=== PATIENT | male | born 1960 ===

== ENCOUNTER 2017-07-01 21:44 | Inpatient (IN) | payer OTHER ==
[2017-07-01] MEDS ORDERED: Sodium Chloride 0.9% 1,000 ML IV STA (22:17)
--- NOTE | 2017-07-01 22:45 | ED PDOC ---
HPI: Psych/Substance Abuse Time Seen by Provider: 07/01/17 21:54 Chief Complaint (Nursing): Alcohol Ingestion Chief Complaint (Provider): Alcohol Ingestion ED Caveat: Altered Mental Status History Per: EMS History/Exam Limitations: intoxication Onset/Duration Of Symptoms: Hrs Current Symptoms Are (Timing): Still Present Additional Complaint(s): Ramon Neves is a 57 year old male with unknown past medical history who was brought to the ER by EMS for evaluation of altered mental status and possible intoxication. EMS states that patient was found trying to get into his apartment when his neighbor called 911. His neighbor reports that patient is not normally like this. Patient reported that he has been drinking. History from patient may be unreliable due to intoxication. PMD: none provided NIHSS Stroke Scale - Date/Time Evaluation Performed Date Performed: 07/01/17 Time Performed: 21:55 When Was NIHSS Performed: Baseline - How Severe is the Stroke Level of Consciousness: 1=Drowsy LOC to Questions: 1=One correct LOC to commands: 0=Obeys both correctly Best Gaze: 0=Normal Visual: 0=No visual loss Facial: 0=Normal Motor Arm - Left: 0=No drift Motor Arm - Right: 0=No drift Motor Leg - Left: 0=No drift Motor Leg - Right: 0=No drift Limb Ataxia: 0=Absent Sensory: 0=Normal Best Language: 1=Mild to moderate aphasia Dysarthia: 1=Mild to moderate slurring Extinction & Inattention (Neglect): 0=Normal, no object Score: 4 Past Medical History Reviewed: Historical Data, Nursing Documentation, Vital Signs, Unable To Obtain Vital Signs: Last Vital Signs Temp 97.8 F 07/01/17 21:46 Pulse 96 H 07/01/17 21:46 Resp 16 07/01/17 21:46 BP 139/85 07/01/17 21:46 Pulse Ox 100 07/01/17 21:46 - Family History Family History: States: Unknown Family Hx - Home Medications Home Medications: Ambulatory Orders Medication Instructions Recorded Unobtainable 07/02/17 - Allergies Allergies/Adverse Reactions: Allergies Allergy/AdvReac Type Severity Reaction Status Date / Time No Known Allergies Allergy Verified 07/01/17 21:50 Review of Systems Review Of Systems: ROS cannot be obtained secondary to pt's inabilty to answer questions. Physical Exam - Reviewed Nursing Documentation Reviewed: Yes Vital Signs Reviewed: Yes - Physical Exam Appears: Positive for: No Acute Distress (well appearing) Head Exam: Positive for: ATRAUMATIC, NORMOCEPHALIC Skin: Positive for: Warm, Dry Eye Exam: Positive for: EOMI, PERRL ENT: Negative for: Pharyngeal Erythema, Tonsillar Exudate Neck: Positive for: Painless ROM, Supple Cardiovascular/Chest: Positive for: Regular Rate, Rhythm. Negative for: Murmur Respiratory: Positive for: Normal Breath Sounds. Negative for: Respiratory Distress Gastrointestinal/Abdominal: Positive for: Soft. Negative for: Tenderness Back: Positive for: Normal Inspection. Negative for: Decreased ROM Extremity: Positive for: Normal ROM. Negative for: Deformity Lymphatic: Negative for: Adenopathy Neurologic/Psych: Positive for: Alert, Oriented (x1), Aphasia (mild expressive) , Other (slighly slurred speech). Negative for: Motor/Sensory Deficits - Laboratory Results Result Diagrams: 07/01/17 23:03 07/02/17 04:14 - ECG ECG Rhythm: Positive for: Normal QRS, Normal ST Segment, Sinus Rhythm Rate: 84 O2 Sat by Pulse Oximetry: 100 (RA) Pulse Ox Interpretation: Normal Medical Decision Making Medical Decision Making: Time: 22:08 Impression: Altererd Mental Status Differentials: Alcohol/Drug Intoxication, head injury, electrolyte abnormality; if toxicology negative: possible CVA Plan: --CT Head --EKG --Alcohol Serum --CMP --Drug Screen --Magnesium --Phosphorous --ED Urine Dipstick --CBC --COAG --GLucose, POC --IV Fluids Time: 00:00 --Patient endorsed to Dr. Damico, pending CT scan and clinical sobriety. Scribe Attestation: Documented by, Portia Avila acting as a scribe for Ange Valle MD. Provider Scribe Attestation: All medical record entries made by the Scribe were at my direction and personally dictated by me. I have reviewed the chart and agree that the record accurately reflects my personal performance of the history, physical exam, medical decision making, and the department course for this patient. I have also personally directed, reviewed, and agree with the discharge instructions and disposition. Disposition - Clinical Impression Clinical Impression: Altered mental state - Patient ED Disposition Is Patient to be Admitted: Transfer of Care - Disposition Disposition: Transfer of Care Disposition Time: 00:00 Condition: FAIR Patient Signed Over To: Will Damico Handoff Comments: Pending CT scan and sobriety
[2017-07-01 23:06] LABS: BASO # 0.1 K/uL (0.0-0.2); BASO % 1.2 % (0.0-2.0); EOS # 0.2 K/uL (0.0-0.7); EOS % 2.9 % (0.0-4.0); HEMOGLOBIN 13.4 g/dL (12.0-18.0); LYMPH # 2.3 K/uL (1.0-4.3); LYMPH % 31.7 % (20.0-40.0); MEAN CORPUSCULAR HEMOGLOBIN 27.5 pg (27.0-31.0); MEAN CORPUSCULAR HGB CONC 33.2 g/dL (33.0-37.0); MEAN PLATELET VOLUME 9.4 fl (7.2-11.7); MONO # 0.7 K/uL (0.0-0.8); NEUT # 4.1 K/uL (1.8-7.0); NEUT % 55.2 % (50.0-75.0); RBC 4.85 Mil/uL (4.40-5.90); RED CELL DISTRIBUTION WIDTH 12.4 % (11.5-14.5); WHITE BLOOD COUNT 7.4 K/uL (4.8-10.8)
[2017-07-01 23:16] LABS: ALBUMIN 3.1 g/dL (3.5-5.0); ALT/SGPT 36 U/L (21-72); AST/SGOT 26 U/L (17-59); BLOOD UREA NITROGEN 13 mg/dl (9-20); CALCIUM 8.9 mg/dL (8.4-10.2); GFR AFRICAN-AMERICAN > 60; GFR NON-AFRICAN AMERICAN > 60
[2017-07-01 23:25] LABS: PARTIAL THROMBOPLASTIN TIME 31.6 Seconds (25.6-37.1)
--- NOTE | 2017-07-02 00:09 | CT ---
EXAM: CT Head Without Intravenous Contrast CLINICAL HISTORY: 57 years old, male; Signs and symptoms; Altered mental status/memory loss; Additional info: Confusion TECHNIQUE: Axial computed tomography images of the head/brain without intravenous contrast. All CT scans at this facility use one or more dose reduction techniques, viz.: automated exposure control; ma/kV adjustment per patient size (including targeted exams where dose is matched to indication; i.e. head); or iterative reconstruction technique. Coronal and sagittal reformatted images were created and reviewed. COMPARISON: No relevant prior studies available. FINDINGS: Brain: Mild atrophy. No intracranial hemorrhage. No mass. Few scattered foci of decreased attenuation within periventricular/subcortical white matter. Probable chronic infarct about left thalamus/internal capsule. No definite edema. Ventricles: No hydrocephalus. Bones/joints: No acute fracture. Soft tissues: Unremarkable. Sinuses: Scattered minimal mucosal thickening of ethmoid sinuses. Mastoid air cells: No mastoid effusion. Orbits: Unremarkable as visualized. IMPRESSION: 1. Nonspecific white matter changes. Acute infarction may be CT occult within first 24 hours. If a focal deficit persists, consider followup CT or MRI for further evaluation. 2. Incidental/non-acute findings are described above.
--- NOTE | 2017-07-02 00:27 | ED PDOC ---
- Laboratory Results Result Diagrams: 07/01/17 23:03 07/02/17 04:14 - ECG O2 Sat by Pulse Oximetry: 100 (RA) Medical Decision Making Medical Decision Making: Time: 00:00 --Patient is endorsed to provider from Dr. Valle, pending CT scan and clinical sobriety. Time: 00:09 --CT Head FINDINGS: Brain: Mild atrophy. No intracranial hemorrhage. No mass. Few scattered foci of decreased attenuation within periventricular/subcortical white matter. Probable chronic infarct about left thalamus/internal capsule. No definite edema. Ventricles: No hydrocephalus. Bones/joints: No acute fracture. Soft tissues: Unremarkable. Sinuses: Scattered minimal mucosal thickening of ethmoid sinuses. Mastoid air cells: No mastoid effusion. Orbits: Unremarkable as visualized. IMPRESSION: 1. Nonspecific white matter changes. Acute infarction may be CT occult within first 24 hours. If a focal deficit persists, consider followup CT or MRI for further evaluation. 2. Incidental/non-acute findings are described above. Time: 0336 --Labs: no clinically significant abnormality. --Upon re-evaluation, patient continues to be in persistent state of confusion. It is uncertain if this is an acute change in mentation as no other constitution party was reachable to provide collateral information. Patient is only oriented to person. --Ammonia and lact acid additionally ordered. Time: 0350 --Patient will require hospital admission. --Case discussed with Dr. Acuña, hospitalist. Clinical Impression: Altered Mental Status Scribe Attestation: Documented by Danielle Raygoza, acting as a scribe for Will Damico MD. Provider Scribe Attestation: All medical record entries made by the Scribe were at my direction and personally dictated by me. I have reviewed the chart and agree that the record accurately reflects my personal performance of the history, physical exam, medical decision making, and the department course for this patient. I have also personally directed, reviewed, and agree with the discharge instructions and disposition. Disposition - Clinical Impression Clinical Impression: Altered mental state - POA Present On Arrival: None - Disposition Disposition: Admitted as In-Patient Disposition Time: 03:30 Condition: FAIR
[2017-07-02 01:07] LABS: BARBITURATES, UR NEGATIVE (NEGATIVE); BENZODIAZEPINES, UR NEGATIVE (NEGATIVE); OPIATES, UR NEGATIVE (NEGATIVE); PHENCYCLIDINE, UR NEGATIVE (NEGATIVE)
[2017-07-02] MEDS ORDERED: Multivitamin (MVI) 10 ML, Thiamine 100 MG, Folic Acid 1 MG, Magnesium Sulfate 1 GM in S... IV ONE ×2 (03:58→04:07)
--- NOTE | 2017-07-02 04:03 | CP.PCM.HP ---
History of Present Illness - History of Present Illness History of Present Illness: CC: AMS HPI: This is a 57 y/o male with unknown MHx except for DM2 and EtOH who was brought by EMS for AMS and intoxication. A neighbor had noticed him trying to get into his apartment, but acting abnormal, so neighbor called 911; per neighbor, this is not the patient's baseline. Patient provides almost no history , aside from the fact that he drinks EtOH. States that he feels fine, that nothing is wrong with him. ROS: unable to provide MHx: DM2, EtOH abuse SHx: Unknown Allergies: NKDA Medications: Unknown Family Hx: Cannot provide Social Hx: Lives alone apparently, consumes unknown amount of EtOH, o/w unable to provide any info Present on Admission - Present on Admission Any Indicators Present on Admission: No Past Patient History - Past Social History Smoking Status: Never Smoked - PSYCHIATRIC Hx Substance Use: No Meds Allergies/Adverse Reactions: Allergies Allergy/AdvReac Type Severity Reaction Status Date / Time No Known Allergies Allergy Verified 07/01/17 21:50 Physical Exam - Constitutional Appears: No Acute Distress, Confused - Head Exam Head Exam: ATRAUMATIC, NORMOCEPHALIC - Eye Exam Eye Exam: EOMI, PERRL - ENT Exam ENT Exam: Mucous Membranes Moist - Neck Exam Neck exam: Positive for: Full Rom - Respiratory Exam Respiratory Exam: Clear to Auscultation Bilateral, NORMAL BREATHING PATTERN - Cardiovascular Exam Cardiovascular Exam: REGULAR RHYTHM, +S1, +S2 - GI/Abdominal Exam GI & Abdominal Exam: Normal Bowel Sounds, Soft - Extremities Exam Extremities exam: Positive for: full ROM, normal inspection - Neurological Exam Neurological exam: CN II-XII Intact Additional comments: awake, but oriented maximum x1 - Psychiatric Exam Psychiatric exam: Normal Affect, Normal Mood - Skin Skin Exam: Dry, Warm Results - Vital Signs Recent Vital Signs: Last Vital Signs Temp 97.8 F 07/01/17 21:46 Pulse 84 07/02/17 00:26 Resp 16 07/01/17 21:46 BP 139/85 07/01/17 21:46 Pulse Ox 100 07/02/17 03:59 - Labs Result Diagrams: 07/01/17 23:03 07/01/17 23:03 Labs: Laboratory Results - last 24 hr 07/01/17 07/01/17 07/01/17 22:13 23:03 23:03 WBC 7.4 RBC 4.85 Hgb 13.4 Hct 40.3 MCV 83.0 MCH 27.5 MCHC 33.2 RDW 12.4 Plt Count 164 MPV 9.4 Neut % (Auto) 55.2 Lymph % (Auto) 31.7 [place] % (Auto) 9.0 Eos % (Auto) 2.9 Baso % (Auto) 1.2 Neut # (Auto) 4.1 Lymph # (Auto) 2.3 [place] # (Auto) 0.7 Eos # (Auto) 0.2 Baso # (Auto) 0.1 PT INR APTT Sodium 132 Potassium 3.5 L Chloride 93 L Carbon Dioxide 23 Anion Gap 20 BUN 13 Creatinine 0.7 L Est GFR ( Amer) > 60 Est GFR (Non-Af Amer) > 60 POC Glucose (mg/dL) 286 H Random Glucose 288 H Calcium 8.9 Phosphorus 3.8 Magnesium 1.9 Total Bilirubin 0.3 AST 26 ALT 36 Alkaline Phosphatase 74 Total Protein 6.2 L Albumin 3.1 L Globulin 3.1 Albumin/Globulin Ratio 1.0 Urine Opiates Screen Urine Methadone Screen Ur Barbiturates Screen Ur Phencyclidine Scrn Ur Amphetamines Screen U Benzodiazepines Scrn U Oth Cocaine Metabols U Cannabinoids Screen Alcohol, Quantitative 124 H 18 07/02/17 23:03 00:42 WBC RBC Hgb Hct MCV MCH MCHC RDW Plt Count MPV Neut % (Auto) Lymph % (Auto) [place] % (Auto) Eos % (Auto) Baso % (Auto) Neut # (Auto) Lymph # (Auto) [place] # (Auto) Eos # (Auto) Baso # (Auto) PT 11.0 INR 1.0 APTT 31.6 Sodium Potassium Chloride Carbon Dioxide Anion Gap BUN Creatinine Est GFR ( Amer) Est GFR (Non-Af Amer) POC Glucose (mg/dL) Random Glucose Calcium Phosphorus Magnesium Total Bilirubin AST ALT Alkaline Phosphatase Total Protein Albumin Globulin Albumin/Globulin Ratio Urine Opiates Screen Negative Urine Methadone Screen Negative Ur Barbiturates Screen Negative Ur Phencyclidine Scrn Negative Ur Amphetamines Screen Negative U Benzodiazepines Scrn Negative U Oth Cocaine Metabols Negative U Cannabinoids Screen Negative Alcohol, Quantitative - EKG Data EKG Interpreted by: Myself EKG shows normal: Sinus rhythm Rate: Normal - Imaging and Cardiology CT scan - head Status: Image reviewed by me, Report reviewed by me (unremarkable, no acute findings; some atrophy noted) Assessment & Plan (1) Altered mental state Assessment and Plan: 57 y/o male with unknown history other than DM2 and EtOH who was found with AMS. 1) AMS/EtOH intoxication -- unclear etiology, may be due to some underlying dementia possible due to EtOH? -Banana bag -Replete K/Mg -TSH, B12, Folate, and RPR for AM -Ammonia pending -Consider psych/neuro consults if mental status does not improve by AM 2) DM2 -DM diet -accucheck ACHS with SSI 3) DVT PPx -- SQ lovenox Status: Acute (2) ETOH abuse Status: Acute (3) DM2 (diabetes mellitus, type 2) Status: Acute (4) DVT prophylaxis Status: Acute
[2017-07-02] MEDS ORDERED: KCL 40MEQ/NS 1L 1,000 ML IV SCH (04:15)
[2017-07-02 04:33] LABS: BLOOD UREA NITROGEN 12 mg/dl (9-20); CALCIUM 8.7 mg/dL (8.4-10.2); GFR AFRICAN-AMERICAN > 60; GFR NON-AFRICAN AMERICAN > 60
[2017-07-02 05:20] LABS: SQUAMOUS EPITHIAL < 1 /hpf (0-5); URINE BILIRUBIN NEGATIVE (NEGATIVE); URINE BLOOD SMALL (NEGATIVE); URINE CLARITY CLEAR (Clear); URINE COLOR YELLOW (YELLOW); URINE GLUCOSE (UA) >=500 mg/dL (Normal); URINE LEUKOCYTE ESTERASE NEG Leu/uL (Negative); URINE PROTEIN 100 mg/dL (NEGATIVE); URINE UROBILINOGEN 0.2-1.0 mg/dL (0.2-1.0)
[2017-07-02] MEDS ORDERED: Labetalol 5 mg/ml Inj 20ML IVP STA (05:34)
--- NOTE | 2017-07-02 10:10 | CARD ---
APPROVED REPORT EKG Measurement Heart [id number] <Conclusion> Normal sinus rhythm Normal ECG
[2017-07-02] MEDS: Insulin Lispro (humaLOG) 100 Units/ml Inj SC SCH ×3 (12:55→22:17)
--- NOTE | 2017-07-02 15:22 | CP.PCM.CON ---
History of Present Illness - History of Present Illness History of Present Illness: 57 yr old male , who was found by neighbors to be confused and wandering, albeit under the influence of alcohol. His baseline is not known, but he does have a history of drinking up to 7 beers daily. He is not able to give me a good history so I obtained history from the chart. PMH/PSH: DM, ETOH FH/SH: drinks beer daily, no marijuana All: nkda. on exam: AAOx1. Does not know where he is, or the date. CN 2-12 normal. EOMI. Can name only simple objects, can repeat and follows commands well. Has great difficulty with right left differentiation. Motor: strength normal. Sensory: intact ft, pin, position sense. Dtr: +2 ul and ll bl. Toes downgoing. No clonus. Gait normal. CT head: shows frontal atrophy and old left thalamic stroke, subacute. Past Patient History - Past Social History Smoking Status: Never Smoked - PSYCHIATRIC Hx Substance Use: No Meds Allergies/Adverse Reactions: Allergies Allergy/AdvReac Type Severity Reaction Status Date / Time No Known Allergies Allergy Verified 07/01/17 21:50 - Medications Medications: Current Medications Enoxaparin Sodium (Lovenox) 40 mg SC DAILY [facility] PRN Reason: Protocol Oral Electrolytes (Kcl 40meq/ 0.9% 1l) 1,000 mls @ 50 mls/hr IV .Q20H [facility] Stop: 07/03/17 00:14 Last Admin: 07/02/17 05:50 Dose: 50 mls/hr Multivitamins/Vitamin C 10 ml/Thiamine HCl 100 mg/ Folic Acid 1 mg/ Magnesium Sulfate 1 gm/ Sodium Chloride 1,013.2 mls @ 75 mls/hr IV .[id number] ONE Stop: 07/02/17 17:28 Last Admin: 07/02/17 05:06 Dose: 75 mls/hr Insulin Human Lispro (Humalog) 0 units SC ACHS [facility] PRN Reason: Protocol Last Admin: 07/02/17 12:55 Dose: 2 units Results - Vital Signs Recent Vital Signs: Last Vital Signs Temp 98.2 F 07/02/17 11:43 Pulse 85 07/02/17 11:43 Resp 18 07/02/17 11:43 BP 144/82 07/02/17 11:43 Pulse Ox 98 07/02/17 11:43 - Labs Result Diagrams: 07/01/17 23:03 07/02/17 04:14 Labs: Laboratory Results - last 24 hr 07/01/17 07/01/17 07/01/17 22:13 23:03 23:03 WBC 7.4 RBC 4.85 Hgb 13.4 Hct 40.3 MCV 83.0 MCH 27.5 MCHC 33.2 RDW 12.4 Plt Count 164 MPV 9.4 Neut % (Auto) 55.2 Lymph % (Auto) 31.7 [place] % (Auto) 9.0 Eos % (Auto) 2.9 Baso % (Auto) 1.2 Neut # (Auto) 4.1 Lymph # (Auto) 2.3 [place] # (Auto) 0.7 Eos # (Auto) 0.2 Baso # (Auto) 0.1 PT INR APTT Sodium 132 Potassium 3.5 L Chloride 93 L Carbon Dioxide 23 Anion Gap 20 BUN 13 Creatinine 0.7 L Est GFR ( Amer) > 60 Est GFR (Non-Af Amer) > 60 POC Glucose (mg/dL) 286 H Random Glucose 288 H Lactic Acid Calcium 8.9 Phosphorus 3.8 Magnesium 1.9 Total Bilirubin 0.3 AST 26 ALT 36 Alkaline Phosphatase 74 Ammonia Total Protein 6.2 L Albumin 3.1 L Globulin 3.1 Albumin/Globulin Ratio 1.0 Vitamin B12 TSH 3rd Generation Urine Color Urine Clarity Urine pH Ur Specific [place] Urine Protein Urine Glucose (UA) Urine Ketones Urine Blood Urine Nitrate Urine Bilirubin Urine Urobilinogen Ur Leukocyte Esterase Urine RBC (Auto) Urine Microscopic WBC Ur Squamous Epith Cells Urine Opiates Screen Urine Methadone Screen Ur Barbiturates Screen Ur Phencyclidine Scrn Ur Amphetamines Screen U Benzodiazepines Scrn U Oth Cocaine Metabols U Cannabinoids Screen Alcohol, Quantitative 124 H 07/01/17 07/02/17 07/02/17 23:03 00:42 04:08 WBC RBC Hgb Hct MCV MCH MCHC RDW Plt Count MPV Neut % (Auto) Lymph % (Auto) [place] % (Auto) Eos % (Auto) Baso % (Auto) Neut # (Auto) Lymph # (Auto) [place] # (Auto) Eos # (Auto) Baso # (Auto) PT 11.0 INR 1.0 APTT 31.6 Sodium Potassium Chloride Carbon Dioxide Anion Gap BUN Creatinine Est GFR ( Amer) Est GFR (Non-Af Amer) POC Glucose (mg/dL) Random Glucose Lactic Acid Calcium Phosphorus Magnesium Total Bilirubin AST ALT Alkaline Phosphatase Ammonia < 9 L Total Protein Albumin Globulin Albumin/Globulin Ratio Vitamin B12 TSH 3rd Generation Urine Color Urine Clarity Urine pH Ur Specific [place] Urine Protein Urine Glucose (UA) Urine Ketones Urine Blood Urine Nitrate Urine Bilirubin Urine Urobilinogen Ur Leukocyte Esterase Urine RBC (Auto) Urine Microscopic WBC Ur Squamous Epith Cells Urine Opiates Screen Negative Urine Methadone Screen Negative Ur Barbiturates Screen Negative Ur Phencyclidine Scrn Negative Ur Amphetamines Screen Negative U Benzodiazepines Scrn Negative U Oth Cocaine Metabols Negative U Cannabinoids Screen Negative Alcohol, Quantitative 07/02/17 07/02/17 07/02/17 04:08 04:14 05:13 WBC RBC Hgb Hct MCV MCH MCHC RDW Plt Count MPV Neut % (Auto) Lymph % (Auto) [place] % (Auto) Eos % (Auto) Baso % (Auto) Neut # (Auto) Lymph # (Auto) [place] # (Auto) Eos # (Auto) Baso # (Auto) PT INR APTT Sodium 138 Potassium 4.2 Chloride 99 Carbon Dioxide 25 Anion Gap 18 BUN 12 Creatinine 0.6 L Est GFR ( Amer) > 60 Est GFR (Non-Af Amer) > 60 POC Glucose (mg/dL) Random Glucose 232 H Lactic Acid 1.7 Calcium 8.7 Phosphorus Magnesium Total Bilirubin AST ALT Alkaline Phosphatase Ammonia Total Protein Albumin Globulin Albumin/Globulin Ratio Vitamin B12 521 TSH 3rd Generation 0.98 Urine Color Yellow Urine Clarity Clear Urine pH 6.0 Ur Specific [place] 1.010 Urine Protein 100 Urine Glucose (UA) >=500 Urine Ketones Negative Urine Blood Small Urine Nitrate Negative Urine Bilirubin Negative Urine Urobilinogen 0.2-1.0 Ur Leukocyte Esterase Neg Urine RBC (Auto) 2 Urine Microscopic WBC 1 Ur Squamous Epith Cells < 1 Urine Opiates Screen Urine Methadone Screen Ur Barbiturates Screen Ur Phencyclidine Scrn Ur Amphetamines Screen U Benzodiazepines Scrn U Oth Cocaine Metabols U Cannabinoids Screen Alcohol, Quantitative 07/02/17 07/02/17 05:21 12:19 WBC RBC Hgb Hct MCV MCH MCHC RDW Plt Count MPV Neut % (Auto) Lymph % (Auto) [place] % (Auto) Eos % (Auto) Baso % (Auto) Neut # (Auto) Lymph # (Auto) [place] # (Auto) Eos # (Auto) Baso # (Auto) PT INR APTT Sodium Potassium Chloride Carbon Dioxide Anion Gap BUN Creatinine Est GFR ( Amer) Est GFR (Non-Af Amer) POC Glucose (mg/dL) 247 H 171 H Random Glucose Lactic Acid Calcium Phosphorus Magnesium Total Bilirubin AST ALT Alkaline Phosphatase Ammonia Total Protein Albumin Globulin Albumin/Globulin Ratio Vitamin B12 TSH 3rd Generation Urine Color Urine Clarity Urine pH Ur Specific [place] Urine Protein Urine Glucose (UA) Urine Ketones Urine Blood Urine Nitrate Urine Bilirubin Urine Urobilinogen Ur Leukocyte Esterase Urine RBC (Auto) Urine Microscopic WBC Ur Squamous Epith Cells Urine Opiates Screen Urine Methadone Screen Ur Barbiturates Screen Ur Phencyclidine Scrn Ur Amphetamines Screen U Benzodiazepines Scrn U Oth Cocaine Metabols U Cannabinoids Screen Alcohol, Quantitative Assessment & Plan - Assessment and Plan (Free Text) Assessment: 57 yr old male with 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 He has no history of stroke in the past, and cannot give me a history of weakness, aphasia or dysarthria. I think an MRI brain without contrast would be advisable. If it is positive for acute stroke, we will pursue stroke workup. PLan: 1. B12, TSH 2. MRI Brain without woody. Thank you Dr. morgan
[2017-07-02] MEDS: Enoxaparin 40 mg Syringe SC SCH (17:09)
[2017-07-02 21:58] LABS: FOLATE 10.3 ng/mL
[2017-07-03 06:56] LABS: HDL CHOLESTEROL 27 MG/DL (30-70)
[2017-07-03 07:06] LABS: LDL CHOLESTEROL 76 mg/dL (0-129)
[2017-07-03] MEDS: Insulin Lispro (humaLOG) 100 Units/ml Inj SC SCH ×4 (08:15→21:45)
--- NOTE | 2017-07-03 10:32 | US ---
PROCEDURE: Duplex ultrasound of the carotid and vertebral arteries. HISTORY: CVA COMPARISON: None available. TECHNIQUE: Grayscale and duplex Doppler evaluation of the cervical carotid and vertebral arteries were performed. The common carotid, carotid bifurcations and cervical ICA and proximal ECA were evaluated. The vertebral arteries were evaluated for gross patency and direction. FINDINGS: RIGHT CAROTID ARTERIES: Common Carotid Artery: Normal. Maximal flow velocity of 97.7 cm/s. Carotid Bifurcation: Normal. Internal Carotid Artery:Normal. Maximal flow velocity of 74.1 cm/s. External Carotid Artery (proximal branches): Normal. Maximal flow velocity of 106.4 cm/s. ICA/CCA Ratio: 1.1 LEFT CAROTID ARTERIES: Common Carotid Artery: Normal. Maximal flow velocity of 112.9 cm/s. Carotid Bifurcation: Trace calcific plaque. Internal Carotid Artery:Normal. Maximal flow velocity of 72.4 cm/s. External Carotid Artery (proximal branches): Normal. Maximal flow velocity of 98.4 cm/s. ICA/CCA Ratio: 0.7 VERTEBRAL ARTERIES: Right Vertebral Artery: Patent. Antegrade flow. Left Vertebral Artery: Patent. Antegrade flow. OTHER FINDINGS: Right posterior thyroid cystic nodule. IMPRESSION: Per NASCET criteria, less than 50 percent stenosis of the internal carotid arteries bilaterally. Incidental posterior right thyroid cystic nodule. Dedicated thyroid ultrasound can be obtained for further evaluation as clinically warranted.
--- NOTE | 2017-07-03 13:42 | CP.PCM.PN ---
Subjective - Date & Time of Evaluation Date of Evaluation: 07/03/17 Time of Evaluation: 13:00 - Subjective Subjective: Mr Pura is the same, with some word finding difficulties, and MRI BRain shows new left internal capsule stroke. Exam: unchanged. Objective - Vital Signs/Intake and Output Vital Signs (last 24 hours): Temp Pulse Resp BP Pulse Ox 98.1 F 76 20 165/83 H 99 07/03/17 08:32 07/03/17 08:32 07/03/17 08:32 07/03/17 08:32 07/03/17 08:32 - Medications Medications: Current Medications Aspirin (Ecotrin) 81 mg PO DAILY [facility] Last Admin: 07/03/17 08:22 Dose: 81 mg Atorvastatin Calcium (Lipitor) 40 mg PO DAILY [facility] Last Admin: 07/03/17 08:15 Dose: 40 mg Enoxaparin Sodium (Lovenox) 40 mg SC DAILY [facility] PRN Reason: Protocol Last Admin: 07/02/17 17:09 Dose: 40 mg Insulin Human Lispro (Humalog) 0 units SC [facility] PRN Reason: Protocol Last Admin: 07/03/17 12:54 Dose: 4 units - Labs Labs: 07/01/17 23:03 07/02/17 04:14 PT 11.0 Seconds (9.8-13.1) 07/01/17 23:03 INR 1.0 (0.9-1.2) 07/01/17 23:03 APTT 31.6 Seconds (25.6-37.1) 07/01/17 23:03 Assessment and Plan - Assessment and Plan (Free Text) Assessment: 57 yr old male with new onset stroke, that is most likely several days old that is ischemic in nature, who will need to have stroke workup. We need to transfer him to telemetry, and order CTA head and neck, as well as plavix. HE was not a TPa candidate and NIH stroke scale is now 1. Plan: 1. CTA head and neck 2. Plavix 3. ECHO with bubble study 4. DVT prophylaxis 5. dysphagia evaluation 6. PTherapy. DR. Montanez
--- NOTE | 2017-07-03 15:26 | CP.PCM.PN ---
Subjective - Date & Time of Evaluation Date of Evaluation: 07/03/17 Time of Evaluation: 16:00 - Subjective Subjective: Patient was seen and evaluated bedside. Awake , alert ,oriented to place and person , not time.BP elevated , afebrile. No acute issues overnight. Follows commands. MRI head showed :A small acute subacute infarction is identified at the left thalamus anterolaterally/ posterior limb internal capsule. Objective - Vital Signs/Intake and Output Vital Signs (last 24 hours): Temp Pulse Resp BP Pulse Ox 98.1 F 76 20 165/83 H 99 07/03/17 08:32 07/03/17 08:32 07/03/17 08:32 07/03/17 08:32 07/03/17 08:32 - Medications Medications: Current Medications Aspirin (Ecotrin) 81 mg PO DAILY [facility] Last Admin: 07/03/17 08:22 Dose: 81 mg Atorvastatin Calcium (Lipitor) 40 mg PO DAILY [facility] Last Admin: 07/03/17 08:15 Dose: 40 mg Enoxaparin Sodium (Lovenox) 40 mg SC DAILY [facility] PRN Reason: Protocol Last Admin: 07/02/17 17:09 Dose: 40 mg Insulin Human Lispro (Humalog) 0 units SC [facility] PRN Reason: Protocol Last Admin: 07/03/17 12:54 Dose: 4 units - Labs Labs: 07/01/17 23:03 07/02/17 04:14 PT 11.0 Seconds (9.8-13.1) 07/01/17 23:03 INR 1.0 (0.9-1.2) 07/01/17 23:03 APTT 31.6 Seconds (25.6-37.1) 07/01/17 23:03 - Constitutional Appears: Non-toxic, No Acute Distress - Head Exam Head Exam: ATRAUMATIC, NORMAL INSPECTION, NORMOCEPHALIC - Eye Exam Eye Exam: EOMI, Normal appearance, PERRL Pupil Exam: NORMAL ACCOMODATION - ENT Exam ENT Exam: Mucous Membranes Moist, Normal Exam - Neck Exam Neck Exam: Full ROM, Normal Inspection - Respiratory Exam Respiratory Exam: Clear to Ausculation Bilateral, NORMAL BREATHING PATTERN. absent: Rales, Rhonchi, Wheezes - Cardiovascular Exam Cardiovascular Exam: REGULAR RHYTHM, RRR, +S1, +S2. absent: JVD - GI/Abdominal Exam GI & Abdominal Exam: Soft, Normal Bowel Sounds. absent: Distended, Guarding, Tenderness, Rebound - Rectal Exam Rectal Exam: Deferred - Extremities Exam Extremities Exam: Full ROM, Normal Capillary Refill, Normal Inspection. absent : Calf Tenderness, Pedal Edema - Back Exam Back Exam: NORMAL INSPECTION - Neurological Exam Neurological Exam: Alert, Awake, CN II-XII Intact Neuro motor strength exam: Left Upper Extremity: 5, Right Upper Extremity: 5, Left Lower Extremity: 5, Right Lower Extremity: 5 Additional comments: some confusion gait not assessed - Psychiatric Exam Psychiatric exam: Normal Affect, Normal Mood - Skin Skin Exam: Dry, Intact, Normal Color, Warm Assessment and Plan - Assessment and Plan (Free Text) Assessment: 57 y/o male with PMH DM2 and EtOH abuse was brought by EMS for AMS and intoxication. A neighbor had noticed him trying to get into his apartment, but acting abnormal, so neighbor called 911; per neighbor, this is not the patient' s baseline. Patient provided almost no history in ER aside from the fact that he drinks EtOH. Stated that he feels fine, that nothing is wrong with him. CT head showed no acute pathology ETOH level was 124 . He was admitted in med/surg with presumptive diagnosis of AMS secondary to ETOH intoxication and ETOH abuse. He was started on IVF, thiamine, Folic acid and neuro was consulted who recommended MRI head. 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 Patient transferred to telemetry , started on ASA, statin, lovenox 1. AMS most likely secondary to CVA and ETOH intoxication At present alert awake , oriented to place and person .With some confusion , does not know the year , knows his date Transfer to telemetry since MRI showed new acute/subacute stroke Neurochecks, accuchecks Continue ASA, statin Allow permissive hypertension for now Seizure / withdrawal precautions TSH and Vitamin B12 -- wnl 2. Acute/ Subacute CVA MRI showed a small acute / subacute infarction Neuro on consult Transfer to telemetry and strat continous tele monitor, neurochecks neurochecks CTA head and neck unremarkable Started on ASa, statin Follow up Echo PT eval 3. Hypertension uncontrolled Allow permissive hypertension Strat low dose ACEI 4. Uncontrolled DM2 Hgb A1c 12.5 Continue accuchecks, Insulin coverage Diabetic diet Will start Levemir 10 unit SQ HS 5. ETOH intoxication and abuse ETOH levels on admission 124 Seizure / withdrawal precautions In Thiamine and folic acid 6.DVT prophylaxis Acute Lovenox
[2017-07-03] MEDS ORDERED: Iodixanol 320 MG/ML 100 ML BOTTLE IV ONE (15:28)
[2017-07-03] MEDS ORDERED: Sodium Chloride 0.9% 100 ML ONE (15:28)
--- NOTE | 2017-07-03 16:46 | CT ---
PROCEDURE: CT Angiography of the Brain. HISTORY: stroke COMPARISON: None available. TECHNIQUE: CT angiography of the intracranial and neck arteries was performed. Coronal and sagittal maximum intensity projection reformatted images were generated. Contrast Dose: Visipaque 320, 90 cc Radiation dose:Total exam DLP = 715.17 mGy-cm. This CT exam was performed using one or more of the following dose reduction techniques: Automated exposure control, adjustment of the mA and/or kV according to patient size, and/or use of iterative reconstruction technique. FINDINGS: INTERNAL CEREBRAL ARTERIES: Unremarkable. The skull base, petrous, cavernous and supraclinoid segments are bilaterally widely patent. ANTERIOR CEREBRAL ARTERIES: Unremarkable. A1 and A2 segments are widely patent. Smaller distal branches unremarkable, as visualized. MIDDLE CEREBRAL ARTERIES: Unremarkable. M1 and M2 segments are widely patent. Perisylvian branches grossly symmetric. POSTERIOR CIRCULATION: Basilar Artery: Unremarkable. Distal Vertebral Arteries: Right dominant vertebrobasilar circulation. Distal vertebral arteries are widely patent. Posterior Cerebral Arteries: Unremarkable. Posterior Inferior Cerebellar Arteries: Unremarkable. NECK CTA: Common Carotid arteries: The bilateral common carotid appear widely patent from their origins to their bifurcations with no significant stenosis appreciated. Trace left carotid bulb atherosclerosis noted. No evidence to suggest common carotid artery dissection. Internal Carotid arteries: No significant stenosis is appreciated throughout the cervical internal carotid artery segments bilaterally and there is no evidence of dissection either. External Carotid arteries: Appear unremarkable bilaterally. Vertebral arteries: The bilateral vertebral arteries appear normal in caliber from their origins to their junction with the basilar artery. No significant stenosis or definite pattern of dissection. ANEURYSM/ VASCULAR MALFORMATIONS: None. OTHER FINDINGS: None. IMPRESSION: Unremarkable CT Angiography of the Brain and Neck.
--- NOTE | 2017-07-03 17:22 | MRI ---
PROCEDURE: MRI BRAIN WITHOUT CONTRAST HISTORY: encephalopathy COMPARISON: Unenhanced head CT 07/01/2017. . TECHNIQUE: Multiplanar, multisequence MR images of the brain were obtained without intravenous contrast enhancement. FINDINGS: HEMORRHAGE: None DWI: Restricted diffusion is identified at the anterior lateral left thalamus/ posterior limb external capsule region compatible with acute or possible subacute infarction. BRAIN PARENCHYMA: Trace chronic microangiopathy is identified at the right greater than left frontal lobes minimally affecting the bilateral parietal lobes. Limited chronic microangiopathy is also seen in the kurt. Sulci and cisterns appear within normal limits diffusely. Dilated perivascular spaces are identify the bilateral cerebral hemispheres. Midline brain anatomy is unremarkable exclusive of the kurt appear VENTRICLES: Unremarkable. No hydrocephalus. CRANIUM: Unremarkable. ORBITS: Grossly unremarkable. PARANASAL SINUSES/MASTOIDS: Clear VASCULAR SYSTEM: Skull base flow voids intact. OTHER FINDINGS: None. IMPRESSION: A small acute subacute infarction is identified at the left thalamus anterolaterally/ posterior limb internal capsule. Otherwise trace age related neuro degenerative changes are appreciated which are age-appropriate. Concordant preliminary report from [facility], 07/02/2017. Findings were verbally communicated with Dr. Acuña by Dr. Mckeon of [facility] 8:20 p.m. 07/02/2017 with written down and read back verification.
[2017-07-03] MEDS: Enoxaparin 40 mg Syringe SC SCH (18:57)
[2017-07-03] MEDS: EnalaprilAT 1.25 mg/ml Inj IV PRN (20:18)
[2017-07-03] MEDS: Insulin Detemir 100 Units/ml Inj SC SCH (21:44)
[2017-07-04] MEDS: EnalaprilAT 1.25 mg/ml Inj IV PRN ×2 (05:50→12:34)
[2017-07-04 05:54] LABS: HEMOGLOBIN 13.4 g/dL (12.0-18.0); MEAN CELL VOLUME 83.3 fl (80.0-94.0); MEAN CORPUSCULAR HEMOGLOBIN 27.8 pg (27.0-31.0); MEAN CORPUSCULAR HGB CONC 33.4 g/dL (33.0-37.0); RBC 4.82 Mil/uL (4.40-5.90); RED CELL DISTRIBUTION WIDTH 12.6 % (11.5-14.5); WHITE BLOOD COUNT 6.6 K/uL (4.8-10.8)
[2017-07-04 06:15] LABS: ALBUMIN 3.1 g/dL (3.5-5.0); ALT/SGPT 35 U/L (21-72); AST/SGOT 36 U/L (17-59); BLOOD UREA NITROGEN 13 mg/dl (9-20); CALCIUM 8.5 mg/dL (8.4-10.2); GFR AFRICAN-AMERICAN > 60; GFR NON-AFRICAN AMERICAN > 60
[2017-07-04] MEDS: Insulin Lispro (humaLOG) 100 Units/ml Inj SC SCH ×4 (06:31→21:48)
--- NOTE | 2017-07-04 08:21 | CP.PCM.PN ---
Subjective - Date & Time of Evaluation Date of Evaluation: 07/04/17 Time of Evaluation: 08:15 - Subjective Subjective: Patient seen and examined bedside. Confused.Oriented to place but not time , states that was born in 2014 and president is Neri. No acute issues overnight Gait is stable BP elevated 177/92 HR 77 afebrile No power or sensory deficits Objective - Vital Signs/Intake and Output Vital Signs (last 24 hours): Temp Pulse Resp BP Pulse Ox 98.6 F 77 18 177/92 H 99 07/04/17 07:45 07/04/17 07:45 07/04/17 07:45 07/04/17 07:45 07/04/17 07:45 - Medications Medications: Current Medications Aspirin (Ecotrin) 81 mg PO DAILY [facility] Last Admin: 07/03/17 08:22 Dose: 81 mg Atorvastatin Calcium (Lipitor) 40 mg PO DAILY [facility] Last Admin: 07/03/17 08:15 Dose: 40 mg Enalapril Maleate (Vasotec) 5 mg PO DAILY [facility] Enalaprilat (Vasotec Iv) 1.25 mg IV Q6 PRN PRN Reason: SBP > 160 Last Admin: 07/04/17 05:50 Dose: 1.25 mg Enoxaparin Sodium (Lovenox) 40 mg SC DAILY [facility] PRN Reason: Protocol Last Admin: 07/03/17 18:57 Dose: 40 mg Folic Acid (Folic Acid) 1 mg PO DAILY [facility] Insulin Detemir (Levemir) 10 units SC HS [facility] Last Admin: 07/03/17 21:44 Dose: 10 units Insulin Human Lispro (Humalog) 0 units SC ACHS [facility] PRN Reason: Protocol Last Admin: 07/04/17 06:31 Dose: Not Given Multivitamins/Minerals (Therapeutic-M Tab) 1 tab PO DAILY [facility] Potassium Chloride (Potassium Chloride Oral Soln) 20 meq PO ONCE ONE Stop: 07/04/17 08:20 Thiamine HCl (Vitamin B1 Tab) 100 mg PO DAILY [facility] - Labs Labs: 07/04/17 05:00 07/04/17 05:00 PT 11.0 Seconds (9.8-13.1) 07/01/17 23:03 INR 1.0 (0.9-1.2) 07/01/17 23:03 APTT 31.6 Seconds (25.6-37.1) 07/01/17 23:03 - Constitutional Appears: Non-toxic, No Acute Distress - Head Exam Head Exam: ATRAUMATIC, NORMAL INSPECTION, NORMOCEPHALIC - Eye Exam Eye Exam: EOMI, Normal appearance, PERRL Pupil Exam: NORMAL ACCOMODATION - ENT Exam ENT Exam: Mucous Membranes Moist, Normal Exam - Neck Exam Neck Exam: Full ROM, Normal Inspection - Respiratory Exam Respiratory Exam: Clear to Ausculation Bilateral, NORMAL BREATHING PATTERN. absent: Rales, Rhonchi, Wheezes - Cardiovascular Exam Cardiovascular Exam: REGULAR RHYTHM, RRR, +S1, +S2. absent: JVD - GI/Abdominal Exam GI & Abdominal Exam: Soft, Normal Bowel Sounds. absent: Distended, Guarding, Rebound - Rectal Exam Rectal Exam: Deferred - Extremities Exam Extremities Exam: Full ROM, Normal Capillary Refill, Normal Inspection. absent : Calf Tenderness, Pedal Edema - Back Exam Back Exam: NORMAL INSPECTION - Neurological Exam Neurological Exam: Alert, Awake, CN II-XII Intact, Normal Gait Neuro motor strength exam: Left Upper Extremity: 5, Right Upper Extremity: 5, Left Lower Extremity: 5, Right Lower Extremity: 5 Additional comments: confused oriented to place not time - Psychiatric Exam Psychiatric exam: Normal Affect - Skin Skin Exam: Dry, Normal Color, Warm Assessment and Plan - Assessment and Plan (Free Text) Assessment: 57 y/o male with PMH DM2 and EtOH abuse was brought by EMS for AMS and intoxication. A neighbor had noticed him trying to get into his apartment, but acting abnormal, so neighbor called 911; per neighbor, this is not the patient' s baseline. Patient provided almost no history in ER aside from the fact that he drinks EtOH. Stated that he feels fine, that nothing is wrong with him. CT head showed no acute pathology ETOH level was 124 . He was admitted in med/surg with presumptive diagnosis of AMS secondary to ETOH intoxication and ETOH abuse. He was started on IVF, thiamine, Folic acid and neuro was consulted who recommended MRI head. 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 Patient transferred to telemetry , started on ASA, statin, lovenox At present confused at times , BP elevated 1. AMS most likely secondary to CVA and ETOH intoxication , Wernickle Korsakoff ?? At present alert awake , oriented to place and person but not time.With some confusion , does not know the year , knows his date MRI showed new small acute/subacute stroke at left thalamus With no weakness or sensory deficit , gait is stable but confused, speech clear Continue ASA, statin Allow permissive hypertension but start BP meds today Seizure / withdrawal precautions TSH and Vitamin B12 -- wnl 2. Acute/ Subacute CVA MRI showed a small acute / subacute infarction Neuro on consult Continue tele monitor and neurochecks CTA head and neck unremarkable on ASa, statin Follow up Echo report PT eval 3. Hypertension uncontrolled Allow permissive hypertension Started low dose ACEI 4. Uncontrolled DM2 Hgb A1c 12.5 Continue accuchecks, Insulin coverage Diabetic diet Started Levemir 10 unit SQ HS 5. ETOH intoxication and abuse ETOH levels on admission 124 Seizure / withdrawal precautions on Thiamine and folic acid 6.DVT prophylaxis Acute Lovenox
[2017-07-04] MEDS: Enoxaparin 40 mg Syringe SC SCH (09:55)
[2017-07-04] MEDS: Multivitamin With Minerals Tab PO SCH (09:56)
[2017-07-04] MEDS ORDERED: Potassium Chloride 20 mEq/15 ml LIQ UD PO ONE (10:00)
--- NOTE | 2017-07-04 10:57 | PCM.STROKE ---
Interval History Critical Care Time Spent (in minutes): 20 Stroke Date: 07/02/17 - Treatment DVT Prophylaxis: Lovenox (40 SC daily) Antiplatelet: Acetylsalicylic acid (ASA) (81 mg PO daily), Plavix (75 mg PO daily) Statin: Atrovastatin (lipitor 40 mg PO daily) - Education Written Stroke Education provided regarding: personal risk factors, stroke warning sign/symptoms, how to activate emergency medical services, need to follow up after discharge (neurologist post discharge) NIHSS Stroke Scale - Date/Time Evaluation Performed Date Performed: 07/04/17 Time Performed: 10:58 When Was NIHSS Performed: Re-evaluation - How Severe is the Stroke Level of Consciousness: 0=Alert (unable to state time, place, and person.) LOC to Questions: 2=Neither correct LOC to commands: 0=Obeys both correctly Best Gaze: 0=Normal Visual: 0=No visual loss Facial: 0=Normal Motor Arm - Left: 0=No drift Motor Arm - Right: 0=No drift Motor Leg - Left: 0=No drift Motor Leg - Right: 0=No drift Limb Ataxia: 0=Absent Sensory: 0=Normal Best Language: 1=Mild to moderate aphasia Dysarthia: 1=Mild to moderate slurring Extinction & Inattention (Neglect): 0=Normal, no object Score: 4 Exam - Vital Sign Vital Signs: Temp Pulse Resp BP Pulse Ox 98.6 F 73 18 177/92 H 99 07/04/17 07:45 07/04/17 09:00 07/04/17 07:45 07/04/17 07:45 07/04/17 07:45 Constitutional: Normal appearing Right Pupil: Reactive (3 mm) Right Pupil Size (in mm): 3 Left Pupil: Reactive Left Pupil Size (in mm): 3 Mental Status: Normal: Orientation, Memory (unable to recall his address or any family or children) Cranial Nerve: Normal: Visual Woods, Extraocular movement intact, Facial Sensation, Facial Strength, Hearing, Palate/Tongue Movement, Shoulder Strength Motor: Tone Neuro motor strength exam: Left Upper Extremity: 5, Right Upper Extremity: 5, Left Lower Extremity: 5, Right Lower Extremity: 5 Sensation: Intact to pin Coordination: Finger/nose Vascular Risk: Diabetes Mellitus - Data reviewed Laboratory results: 07/04/17 05:00 05/16/18 05:00 Triglycerides 258 mg/DL (0-149) H 07/03/17 05:55 Cholesterol 151 mg/dL (0-199) 07/03/17 05:55 LDL Cholesterol Direct 76 mg/dL (0-129) 07/03/17 05:55 HDL Cholesterol 27 MG/DL (30-70) L 07/03/17 05:55 Hemoglobin A1c 12.5 % (4.2-6.5) H 07/03/17 05:55 MRA/CTA images: Viewed and interpreted by me (dictated by Dr. Stark with less than 50% stenosis of the bilateral ICA) Echo: result still pending Assessment and Plan (1) Ischemic stroke Assessment & Plan: Case discussed with Dr. Montanez, continue all current medical,physical, occupational , and speech therapies. Recommend to start on Plavix 75 mg PO daily. Pending echocardiogram result. Recommend blood pressure, glycemic control, maintaining LDL < 70, keep head of bed elevated at least 30 degrees for brain perfusion. Status: Acute
[2017-07-04] MEDS: Insulin Detemir 100 Units/ml Inj SC SCH (21:49)
[2017-07-05 00:29] VITALS: RESP 18
[2017-07-05] MEDS: EnalaprilAT 1.25 mg/ml Inj IV PRN (00:53)
[2017-07-05 06:32] LABS: HEMOGLOBIN 13.3 g/dL (12.0-18.0); MEAN CELL VOLUME 83.4 fl (80.0-94.0); MEAN CORPUSCULAR HEMOGLOBIN 27.6 pg (27.0-31.0); RBC 4.82 Mil/uL (4.40-5.90); RED CELL DISTRIBUTION WIDTH 12.2 % (11.5-14.5)
[2017-07-05] MEDS: Insulin Lispro (humaLOG) 100 Units/ml Inj SC SCH ×4 (06:34→21:29)
[2017-07-05 06:42] LABS: BLOOD UREA NITROGEN 13 mg/dl (9-20); GFR AFRICAN-AMERICAN > 60; GFR NON-AFRICAN AMERICAN > 60
[2017-07-05] MEDS: Multivitamin With Minerals Tab PO SCH (08:42)
[2017-07-05] MEDS: Enoxaparin 40 mg Syringe SC SCH (08:43)
--- NOTE | 2017-07-05 10:50 | PCM.STROKE ---
Interval History Critical Care Time Spent (in minutes): 25 Stroke Date: 07/02/17 - Treatment DVT Prophylaxis: Lovenox (40 mg Sq daily) Antiplatelet: Acetylsalicylic acid (ASA) (81 mg PO daily), Plavix (75 mg po daily) Statin: Atrovastatin (40 mg PO daily) - Education Written Stroke Education provided regarding: personal risk factors (alcohol consumption.), stroke warning sign/symptoms, how to activate emergency medical services, need to follow up after discharge NIHSS Stroke Scale - Date/Time Evaluation Performed Date Performed: 07/04/17 Time Performed: 10:58 When Was NIHSS Performed: Re-evaluation - How Severe is the Stroke Level of Consciousness: 0=Alert (unable to state time, place, and person.) LOC to Questions: 2=Neither correct LOC to commands: 0=Obeys both correctly Best Gaze: 0=Normal Visual: 0=No visual loss Facial: 0=Normal Motor Arm - Left: 0=No drift Motor Arm - Right: NA - Amputation, joint fusion Motor Leg - Left: 0=No drift Motor Leg - Right: 0=No drift Limb Ataxia: 0=Absent Sensory: 0=Normal Best Language: 0=No aphasia Dysarthia: 0=Normal articulation Extinction & Inattention (Neglect): 0=Normal, no object Score: 2 Exam - Vital Sign Vital Signs: Temp Pulse Resp BP Pulse Ox 97.8 F 82 18 156/78 H 99 07/05/17 07:46 07/05/17 07:46 07/05/17 07:46 07/05/17 07:46 07/05/17 07:46 Constitutional: No distress Right Pupil: Reactive (2) Right Pupil Size (in mm): 2 Left Pupil: Reactive Left Pupil Size (in mm): 2 Mental Status: Normal: Orientation Cranial Nerve: Normal: Visual Woods, Extraocular movement intact, Facial Strength, Palate/Tongue Movement, Shoulder Strength (cn's are normal.) - Data reviewed Laboratory results: 07/05/17 06:00 07/05/17 06:00 Triglycerides 258 mg/DL (0-149) H 07/03/17 05:55 Cholesterol 151 mg/dL (0-199) 07/03/17 05:55 LDL Cholesterol Direct 76 mg/dL (0-129) 07/03/17 05:55 HDL Cholesterol 27 MG/DL (30-70) L 07/03/17 05:55 Hemoglobin A1c 12.5 % (4.2-6.5) H 07/03/17 05:55 Assessment and Plan (1) Ischemic stroke Assessment & Plan: Case discussed with Dr. Montanez, continue all current medical,physical, occupational , and speech therapies. Recommend to start on Plavix 75 mg PO daily. Pending echocardiogram result. Recommend blood pressure, glycemic control, maintaining LDL < 70, keep head of bed elevated at least 30 degrees for brain perfusion. Status: Acute
--- NOTE | 2017-07-05 11:00 | CARD ---
APPROVED REPORT EXAM: Two-dimensional and M-mode echocardiogram with Doppler and color Doppler. Other Information Quality : GoodRhythm : NSR INDICATION CVA/TIA Echo Enhancing Agent Indication: Rule Out Septal Defect Agent/Amount Used: Agitated Saline 2D DIMENSIONS IVSd1.60 (0.7-1.1cm)LVDd4.95 (3.9-5.9cm) LVOT Diameter2.43 (1.8-2.4cm)PWd1.13 (0.7-1.1cm) IVSs1.78 (0.8-1.2cm)LVDs3.38 (2.5-4.0cm) FS (%) 31.8 %PWs1.67 (0.8-1.2cm) M-Mode DIMENSIONS Left Atrium (MM)4.16 (2.5-4.0cm)IVSd1.31 (0.7-1.1cm) Aortic Root3.22 (2.2-3.7cm)LVDd5.81 (4.0-5.6cm) Aortic Cusp Exc.2.13 (1.5-2.0cm)PWd1.38 (0.7-1.1cm) IVSs1.78 cmFS (%) 38 % LVDs3.63 (2.0-3.8cm)PWs1.94 cm Mitral Valve MV E Imoditfm20.7cm/sMV DECEL QPIF067efMQ A Omssndzs39.7cm/s MV OZO02vlG/A ratio1.3MVA (PHT)3.03cm2 TDI Lateral E' Peak V10.76cm/sMedial E' Peak V6.52cm/sE/Lateral E'6.4 E/Medial E'10.5 Pulmonary Valve PV Peak Aggoyccg91.3cm/s LEFT VENTRICLE The left ventricle is normal size. There is normal left ventricular wall thickness. The left ventricular function is normal. The left ventricular ejection fraction is within the normal range. The Ejection Fraction is 60-65%. There is normal LV segmental wall motion. The left ventricular diastolic function is normal. There is no ventricular septal defect visualized. RIGHT VENTRICLE The right ventricle is normal size. There is normal right ventricular wall thickness. The right ventricular systolic function is normal. ATRIA The left atrium size is normal. The right atrium size is normal. AORTIC VALVE The aortic valve is normal in structure. No aortic regurgitation is present. There is no aortic valvular stenosis. MITRAL VALVE The mitral valve is normal in structure. There is no mitral valve stenosis. There is no mitral valve regurgitation noted. TRICUSPID VALVE The tricuspid valve is normal in structure. There is no tricuspid valve regurgitation noted. There is no tricuspid valve stenosis. PULMONIC VALVE The pulmonary valve is normal in structure. There is no pulmonic valvular regurgitation. GREAT VESSELS The aortic root is normal in size. The IVC is normal in size and collapses >50% with inspiration. PERICARDIAL EFFUSION The pericardium appears normal. <Conclusion> The left ventricle is normal size. The left ventricular function is normal. The left ventricular ejection fraction is within the normal range. The Ejection Fraction is 60-65%.
--- NOTE | 2017-07-05 11:30 | CP.PCM.DIS ---
Provider - Provider Date of Admission: 07/02/17 03:36 Attending physician: Daniel Acuña MD Time Spent in preparation of Discharge (in minutes): 30 Hospital Course - Lab Results Lab Results: Most Recent Lab Values WBC 5.0 K/uL (4.8-10.8) 07/05/17 06:00 RBC 4.82 Mil/uL (4.40-5.90) 07/05/17 06:00 Hgb 13.3 g/dL (12.0-18.0) 07/05/17 06:00 Hct 40.2 % (35.0-51.0) 07/05/17 06:00 MCV 83.4 fl (80.0-94.0) 07/05/17 06:00 MCH 27.6 pg (27.0-31.0) 07/05/17 06:00 MCHC 33.0 g/dL (33.0-37.0) 07/05/17 06:00 RDW 12.2 % (11.5-14.5) 07/05/17 06:00 Plt Count 138 K/uL (130-400) 07/05/17 06:00 MPV 9.4 fl (7.2-11.7) 07/01/17 23:03 Neut % (Auto) 55.2 % (50.0-75.0) 07/01/17 23:03 Lymph % (Auto) 31.7 % (20.0-40.0) 07/01/17 23:03 [place] % (Auto) 9.0 % (0.0-10.0) 07/01/17 23:03 Eos % (Auto) 2.9 % (0.0-4.0) 07/01/17 23:03 Baso % (Auto) 1.2 % (0.0-2.0) 07/01/17 23:03 Neut # (Auto) 4.1 K/uL (1.8-7.0) 07/01/17 23:03 Lymph # (Auto) 2.3 K/uL (1.0-4.3) 07/01/17 23:03 [place] # (Auto) 0.7 K/uL (0.0-0.8) 07/01/17 23:03 Eos # (Auto) 0.2 K/uL (0.0-0.7) 07/01/17 23:03 Baso # (Auto) 0.1 K/uL (0.0-0.2) 07/01/17 23:03 PT 11.0 Seconds (9.8-13.1) 07/01/17 23:03 INR 1.0 (0.9-1.2) 07/01/17 23:03 APTT 31.6 Seconds (25.6-37.1) 07/01/17 23:03 Sodium 138 mmol/l (132-148) 07/05/17 06:00 Potassium 3.7 MMOL/L (3.6-5.0) 07/05/17 06:00 Chloride 101 mmol/L (98-107) 07/05/17 06:00 Carbon Dioxide 28 mmol/L (22-30) 07/05/17 06:00 Anion Gap 13 (10-20) 07/05/17 06:00 BUN 13 mg/dl (9-20) 07/05/17 06:00 Creatinine 0.6 mg/dl (0.8-1.5) L 07/05/17 06:00 Est GFR ( Amer) > 60 07/05/17 06:00 Est GFR (Non-Af Amer) > 60 07/05/17 06:00 POC Glucose (mg/dL) 159 mg/dL (65-110) H 07/05/17 05:28 Random Glucose 170 mg/dL (75-110) H 07/05/17 06:00 Hemoglobin A1c 12.5 % (4.2-6.5) H 07/03/17 05:55 Lactic Acid 1.7 MMOL/L (0.7-2.1) 07/02/17 04:08 Calcium 9.0 mg/dL (8.4-10.2) 07/05/17 06:00 Phosphorus 3.8 mg/dl (2.5-4.5) 07/01/17 23:03 Magnesium 1.9 MG/DL (1.6-2.3) 07/01/17 23:03 Total Bilirubin 0.5 mg/dl (0.2-1.3) 07/04/17 05:00 AST 36 U/L (17-59) 07/04/17 05:00 ALT 35 U/L (21-72) 07/04/17 05:00 Alkaline Phosphatase 73 U/L (38-126) 07/04/17 05:00 Ammonia < 9 umo/L (16-60) L 07/02/17 04:08 Total Protein 6.3 G/DL (6.3-8.2) 07/04/17 05:00 Albumin 3.1 g/dL (3.5-5.0) L 07/04/17 05:00 Globulin 3.2 gm/dL (2.2-3.9) 07/04/17 05:00 Albumin/Globulin Ratio 1.0 (1.0-2.1) 07/04/17 05:00 Triglycerides 258 mg/DL (0-149) H 07/03/17 05:55 Cholesterol 151 mg/dL (0-199) 07/03/17 05:55 LDL Cholesterol Direct 76 mg/dL (0-129) 07/03/17 05:55 HDL Cholesterol 27 MG/DL (30-70) L 07/03/17 05:55 Vitamin B12 521 pg/mL (239-931) 07/02/17 04:14 Folate 10.3 ng/mL 07/02/17 04:14 TSH 3rd Generation 0.98 mIU/ML (0.46-4.68) 07/02/17 04:14 Urine Color Yellow (YELLOW) 07/02/17 05:13 Urine Clarity Clear (Clear) 07/02/17 05:13 Urine pH 6.0 (5.0-8.0) 07/02/17 05:13 Ur Specific [place] 1.010 (1.003-1.030) 07/02/17 05:13 Urine Protein 100 mg/dL (NEGATIVE) 07/02/17 05:13 Urine Glucose (UA) >=500 mg/dL (Normal) 07/02/17 05:13 Urine Ketones Negative mg/dL (NEGATIVE) 07/02/17 05:13 Urine Blood Small (NEGATIVE) 07/02/17 05:13 Urine Nitrate Negative (NEGATIVE) 07/02/17 05:13 Urine Bilirubin Negative (NEGATIVE) 07/02/17 05:13 Urine Urobilinogen 0.2-1.0 mg/dL (0.2-1.0) 07/02/17 05:13 Ur Leukocyte Esterase Neg Magnus/uL (Negative) 07/02/17 05:13 Urine RBC (Auto) 2 /hpf (0-3) 07/02/17 05:13 Urine Microscopic WBC 1 /hpf (0-5) 07/02/17 05:13 Ur Squamous Epith Cells < 1 /hpf (0-5) 07/02/17 05:13 Urine Opiates Screen Negative (NEGATIVE) 07/02/17 00:42 Urine Methadone Screen Negative (NEGATIVE) 07/02/17 00:42 Ur Barbiturates Screen Negative (NEGATIVE) 07/02/17 00:42 Ur Phencyclidine Scrn Negative (NEGATIVE) 07/02/17 00:42 Ur Amphetamines Screen Negative (NEGATIVE) 07/02/17 00:42 U Benzodiazepines Scrn Negative (NEGATIVE) 07/02/17 00:42 U Oth Cocaine Metabols Negative (NEGATIVE) 07/02/17 00:42 U Cannabinoids Screen Negative (NEGATIVE) 07/02/17 00:42 Alcohol, Quantitative 124 mg/dl (0-10) H 07/01/17 23:03 RPR Nonreactive (NONREACTIVE) 07/02/17 04:14 - Hospital Course Hospital Course: 57 y/o male with PMH DM2 and EtOH abuse was brought by EMS for AMS and intoxication. A neighbor had noticed him trying to get into his apartment, but acting abnormal, so neighbor called 911; per neighbor, this is not the patient' s baseline. Patient provided almost no history in ER aside from the fact that he drinks EtOH. Stated that he feels fine, that nothing is wrong with him. CT head showed no acute pathology ETOH level was 124 . He was admitted in med/surg with presumptive diagnosis of AMS secondary to ETOH intoxication and ETOH abuse. He was started on IVF, thiamine, Folic acid and neuro was consulted who recommended MRI head. 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 Patient evaluated by Neurology, ASA, PLAVIX, STATIN initiated. BP controlled. Patient with some Cognitive deficits, pt to follow up for Cognitive Therapy as outpatient and follow up with Neuro and PCP. Patient also initiated on Oral Antihyperglycemics. Pt to follow up with pcp for further management and care. HD stable, NAD. Discharge Exam - Head Exam Additional comments: Vitals Reviewed GEN: WDWN, alert, cooperative HEENT: NCAT, PERRL, EOMI HEART: RRR, +S1S2, NO MRG LUNG: CTAB, NO WRR ABD: soft, NT, ND, No HSM, No masses EXT: normal pedal pulses, normal capillary refill NEURO: awake, alert, no focal deficits SKIN: warm, dry PSYCH: normal mood, normal affect Discharge Plan - Discharge Medications Prescriptions: Aspirin [Ecotrin] 81 mg PO DAILY #30 tabec Atorvastatin [Lipitor] 40 mg PO DAILY #30 tab Clopidogrel [Plavix] 75 mg PO DAILY #30 tab Enalapril Maleate [Vasotec] 5 mg PO DAILY #30 tab Folic Acid 1 mg PO DAILY #30 tab GlipiZIDE [Glucotrol] 5 mg PO ACB #30 tab Multimineral/Multivitamin [Therapeutic-M Tab] 1 tab PO DAILY #30 tab Thiamine [Vitamin B1 Tab] 100 mg PO DAILY #30 tab - Follow Up Plan Condition: FAIR Disposition: HOME/ ROUTINE Instructions: Stroke (DC), Diabetes Type 2 (DC), Alcohol Abuse and Alcoholism ( DC) Additional Instructions: PT FOR COGNITIVE THERAPY, PRESCRIPTION GIVEN. FOLLOW UP PCP IN ONE WEEK FOLLOW UP NEUROLOGY IN ONE WEEK Referrals: Luis Montanez MD [Medical Doctor] -
[2017-07-05 19:59] VITALS: BP 152/88; PULSE 81; TEMP 98.6; O2SAT 97
[2017-07-05] MEDS: Insulin Detemir 100 Units/ml Inj SC SCH (21:30)
== END 2017-07-05 22:00 | disposition home or self-care (01) | DRG 14 ==
LOC: H.ER 21:44 → H.ERHOLD 07-02 03:36 → H.MEDSURG1 07-02 10:54 → H.TEL 07-03 18:55
PROVIDERS: ADMIT Internal Medicine; ATTEND Internal Medicine
DX: I63.9 Cerebral infarction, unspecified (principal); E11.65 Type 2 diabetes mellitus with hyperglycemia; E87.6 Hypokalemia; I10 Essential (primary) hypertension; R41.89 Other symptoms and signs involving cognitive functions and awareness; F10.129 Alcohol abuse with intoxication, unspecified; Y90.6 Blood alcohol level of 120-199 mg/100 ml